=== PATIENT | male | born 1970 | race Caucasian/White ===

== ENCOUNTER 2020-04-10 17:27 | Observation (INO) ==
[2020-04-10] MEDS ORDERED: Ondansetron 4 MG/2 ML VIAL IVP ONE (18:09)
[2020-04-10] MEDS ORDERED: 0.9 % Sodium Chloride 1,000 ML IVC ONE (18:09)
[2020-04-10 18:29] LABS: Basophils % 0.3 %; Hematocrit 48.3 % (37.5-50.1); Hemoglobin 16.6 g/dL (12.9-16.9); Immature Granulocytes % 0.3 % (0-4); Lymphocytes # 0.6 K/mcL (0.6-4.6); Lymphocytes % 17.6 %; Mean Corpuscular HGB Conc 34.4 g/dL (31.6-35.5); Mean Corpuscular Hemoglobin 29.7 pg (28.0-33.3); Mean Corpuscular Volume 86.4 fL (83.0-100.0); Monocytes # 0.3 K/mcL (0.0-1.3); Monocytes % 10.3 %; Neutrophils # 2.4 K/mcL (1.6-8.9); Platelet Count 154 K/mcL (140-400); Red Blood Count 5.59 M/mcL (4.19-5.50); Red Cell Distribution Width 12.7 % (11.5-14.5); Segmented Neutrophils % 71.5 %; White Blood Count 3.3 K/mcL (4.3-11.1)
[2020-04-10 18:49] LABS: BUN/Creatinine Ratio 30 (6-26); Blood Urea Nitrogen 84 mg/dL (6-20); Calcium 9.4 mg/dL (8.6-10.3); Carbon Dioxide 17 mEq/L (23-29); Chloride 101 mEq/L (98-107); Glucose 85 mg/dL (70-105); Osmolality,Calculated 305 (280-300); Potassium 4.3 mEq/L (3.5-5.1); Sodium 135 mEq/L (136-145); Troponin I < 0.03 ng/mL (< 0.04); eGFR For African Americans 29 (> 60); eGFR For Non-African Americans 24 (> 60)
[2020-04-10] MEDS ORDERED: Ondansetron 4 MG/2 ML VIAL IVP PRN (22:13)
[2020-04-10] MEDS ORDERED: Naloxone 0.4 MG/ML INJ IVP PRN (22:13)
[2020-04-10] MEDS: Ringers Solution, Lactated 1,000 ML IVC SCH (22:50)
[2020-04-11 06:12] LABS: Hematocrit 44.1 % (37.5-50.1); Immature Granulocytes % 0.4 % (0-4); Lymphocytes # 0.5 K/mcL (0.6-4.6); Lymphocytes % 18.8 %; Mean Corpuscular HGB Conc 33.6 g/dL (31.6-35.5); Mean Corpuscular Hemoglobin 29.7 pg (28.0-33.3); Mean Corpuscular Volume 88.6 fL (83.0-100.0); Mean Platelet Volume 10.6 fL (9.4-12.4); Monocytes # 0.4 K/mcL (0.0-1.3); Monocytes % 15.7 %; Neutrophils # 1.7 K/mcL (1.6-8.9); Platelet Count 139 K/mcL (140-400); Red Blood Count 4.98 M/mcL (4.19-5.50); Red Cell Distribution Width 12.7 % (11.5-14.5); Segmented Neutrophils % 65.1 %; White Blood Count 2.6 K/mcL (4.3-11.1)
[2020-04-11] MEDS: *HR* Heparin 5,000 UNIT/ML VIAL SQ SCH ×3 (06:15→20:14)
[2020-04-11] MEDS: Ringers Solution, Lactated 1,000 ML IVC SCH ×3 (06:18→20:16)
[2020-04-11 06:22] LABS: Calcium 9.1 mg/dL (8.6-10.3); Magnesium 2.6 mg/dL (1.6-2.6); Potassium 4.6 mEq/L (3.5-5.1)
[2020-04-11 06:23] LABS: Hemoglobin 14.8 g/dL (12.9-16.9)
[2020-04-11 06:28] LABS: INR 1.3; Prothrombin Time 15.2 Seconds (9.4-12.1)
[2020-04-11] MEDS ORDERED: atenoloL 50 MG TABLET PO SCH (09:00)
[2020-04-11] MEDS ORDERED: cloNIDine HCL 0.1 MG TABLET PO SCH (09:00)
[2020-04-12] MEDS: *HR* Heparin 5,000 UNIT/ML VIAL SQ SCH (03:38)
[2020-04-12 06:10] LABS: Hematocrit 42.7 % (37.5-50.1); Hemoglobin 14.6 g/dL (12.9-16.9); Mean Corpuscular HGB Conc 34.2 g/dL (31.6-35.5); Mean Corpuscular Volume 87.9 fL (83.0-100.0); Mean Platelet Volume 10.5 fL (9.4-12.4); Platelet Count 138 K/mcL (140-400); Red Blood Count 4.86 M/mcL (4.19-5.50); Red Cell Distribution Width 12.7 % (11.5-14.5); White Blood Count 2.6 K/mcL (4.3-11.1)
[2020-04-12 06:30] LABS: Calcium 9.1 mg/dL (8.6-10.3); Potassium 4.3 mEq/L (3.5-5.1)
[2020-04-12 07:33] VITALS: BP 118/72
== END 2020-04-12 12:27 | disposition home or self-care (01) ==
LOC: 2NENU 17:27 → EMEROOARM 17:27 → SUATTDRO 21:28 → 2NENU 22:22
PROVIDERS: ADMIT Internal Medicine; ATTEND Internal Medicine